=== PATIENT | female | born 1975 | race Two or more races ===

== ENCOUNTER 2024-04-19 05:32 | Day surgery (SDC) | payer OTHER ==
[2024-04-12 12:39] LABS: URINE APPEARANCE Clear; URINE BILIRRUBIN Negative (NEGATIVE); URINE BLOOD Small; URINE COLOR Yellow; URINE GLUCOSE Negative (NEGATIVE); URINE KETONE Negative (NEGATIVE); URINE LEUKOCYTE Negative; URINE NITRATE Negative; URINE PROTEIN Negative (NEGATIVE); URINE UROBILINOGEN 0.2 E.U./dl
[2024-04-12 12:43] LABS: URINE BACTERIA 64.2 uL (0.0-1933); URINE EPITHELIAL CELLS 2.6 uL (0.0-38.8); URINE RBC 31.9 uL (0.0-20.8); URINE WBC 2.6 uL (0.0-23.2)
[2024-04-12 12:56] LABS: HEMATOCRIT 36.3 % (36.0-45.00); HEMOGLOBIN 11.8 g/dL (12.0-15.00); MEAN CORPUSCULAR HEMOGLOBIN 21.7 pg (27.00-32.0); MEAN CORPUSCULAR HGB CONC 32.4 g/dl (32.0-36.0); PLATELET COUNT 310 K/uL (150-450); RED BLOOD COUNT 5.42 M/uL (4.00-6.00)
[2024-04-12 12:58] LABS: INR 1.03; PARTIAL THROMBOPLASTIN TIME 26.6 SECONDS (22.0-34.0); PROTHROMBIN TIME 10.8 SECONDS (9.0-11.5)
[2024-04-12 13:08] LABS: ALBUMIN 4.4 gm/dL (3.4-5.0); BILIRUBIN TOTAL 0.38 mg/dL (0.3-1.2); CALCIUM 10.5 mg/dL (8.5-10.1); CREATININE SERUM 0.62 mg/dL (0.55-1.02); GFR 101.89; GLOBULINA 3.5 G/DL (2.4-3.5); POTASSIUM 4.11 mEq/L (3.5-5.1); TOTAL PROTEIN 7.9 gm/dL (6.4-8.2)
[~2024-04-19] VITALS: Ht 157.5 cm; Wt 78.5 kg
[~2024-04-19 05:32] MED LIST: AMOX1TAB5 PO; LOSARTAN-HCTZ1 EAC1 PO; METFORMIN HCL750 MG PO; PROTONIX40 MG PO; TRICOR145 MG PO; [UNRECOGNIZED DRUG - OTHER] PO
[2024-04-19] MEDS ORDERED: CEFAZOLIN SODIUM 1,000 MG VIAL ONE (06:09)
[2024-04-19] MEDS ORDERED: SUGAMMADEX SODIUM 200 MG/2 ML VIAL IV ONE (09:21)
[2024-04-19 11:01] LABS: ABG PH 7.408 (7.35-7.45); ABG PO2 163.5 mmHg (80-100); ABG pCO2 40.8 mmHg (35-45); BASE EXCESS 0.5 mmol/l; BICARBONATE 25.2 mmol/l (23-25); SaO2 99.5 %; Tco2 26.4 mmol/l
[2024-04-19 12:20] LABS: allen test SATISFACTORY; o2 40 %; puncture site RADIAL RIGHT
== END 2024-04-19 14:35 | disposition home or self-care (01) ==
LOC: CIR.AMB 05:32
PROVIDERS: Anesthesiology; ATTEND Surgery
DX: K80.20 Calculus of gallbladder without cholecystitis without obstruction (principal); E11.9 Type 2 diabetes mellitus without complications

== ENCOUNTER 2024-05-25 07:45 | Inpatient (IN) | payer OTHER ==
[~2024-05-25] VITALS: Ht 160 cm; Wt 71.7 kg
[2024-05-25 09:23] VITALS: BP 159/85
[2024-05-25 09:26] VITALS: BP 115/78
[2024-05-25 09:28] LABS: PH,URINE 5.5 (5.0-8.0); URINE APPEARANCE Clear; URINE BILIRRUBIN Negative (NEGATIVE); URINE BLOOD Small; URINE COLOR Yellow; URINE GLUCOSE Negative (NEGATIVE); URINE KETONE Negative (NEGATIVE); URINE LEUKOCYTE Negative; URINE NITRATE Negative; URINE PROTEIN Negative (NEGATIVE); URINE UROBILINOGEN 0.2 E.U./dl
[2024-05-25 09:29] LABS: HEMATOCRIT 37.6 % (36.0-45.00); HEMOGLOBIN 12.4 g/dL (12.0-15.00); MEAN CELL VOLUME 74.1 fL (80.00-100.00); MEAN CORPUSCULAR HEMOGLOBIN 24.5 pg (27.00-32.0); PLATELET COUNT 272 K/uL (150-450); RED BLOOD COUNT 5.07 M/uL (4.00-6.00); RED CELL DISTRIBUTION WIDTH 23.2 % (11.5-14.5); URINE BACTERIA 425.8 uL (0.0-1933); URINE EPITHELIAL CELLS 44.3 uL (0.0-38.8); URINE RBC 111.7 uL (0.0-20.8); URINE WBC 4.7 uL (0.0-23.2)
[2024-05-25 09:30] LABS: URINE CAST 0.15 uL (0.0-1.40)
[2024-05-25 10:10] LABS: INR 1.05; PARTIAL THROMBOPLASTIN TIME 28.9 SECONDS (22.0-34.0); PROTHROMBIN TIME 11.4 SECONDS (9.0-11.5)
[2024-05-25 10:17] LABS: ALBUMIN 4.4 gm/dL (3.4-5.0); BILIRUBIN TOTAL 0.35 mg/dL (0.3-1.2); CALCIUM 9.9 mg/dL (8.5-10.1); CREATININE SERUM 0.67 mg/dL (0.55-1.02); GFR 93.16; GLOBULINA 3.4 G/DL (2.4-3.5); POTASSIUM 3.98 mEq/L (3.5-5.1); TOTAL PROTEIN 7.8 gm/dL (6.4-8.2); TSH 0.907 uIU/mL (0.358-3.74)
[2024-06-02] MEDS ORDERED: FREESTYLE LITE1 EAC1 (07:50)
[2024-06-02] MEDS ORDERED: FUSION PLUS CA1 EACH (07:50)
[2024-06-02] MEDS ORDERED: FLUOCINOLONE AC20 ML (07:50)
[2024-06-02] MEDS ORDERED: CHLORHEXIDINE GLUCONATE 120 ML BOTTLE TOP ONE (08:45)
[2024-06-02] MEDS ORDERED: CEFOXITIN SODIUM 2,000 MG VIAL IV SCH (08:45)
[2024-06-02] MEDS ORDERED: POVIDONE-IODINE 118 ML BOTT TOP ONE (08:45)
[2024-06-02] MEDS ORDERED: MEPERIDINE HCL/PF 50 MG/ML VIAL IV SCH (09:47)
[2024-06-02] MEDS ORDERED: PROMETHAZINE HCL 50 MG/ML AMPUL IV SCH (09:47)
[2024-06-02] MEDS ORDERED: RINGERS SOLUTION,LACTATED 1,000 ML IV SCH (10:00)
[2024-06-02] MEDS ORDERED: MORPHINE SULFATE 4 MG/ML VIAL IV ONE ×2 (11:05→12:05)
[2024-06-02 13:37] VITALS: BP 159/85
[2024-06-02 14:20] LABS: HEMATOCRIT 37.9 % (36.0-45.00); HEMOGLOBIN 12.4 g/dL (12.0-15.00); MEAN CELL VOLUME 74.7 fL (80.00-100.00); MEAN CORPUSCULAR HEMOGLOBIN 24.5 pg (27.00-32.0); MEAN CORPUSCULAR HGB CONC 32.8 g/dl (32.0-36.0); PLATELET COUNT 258 K/uL (150-450); RED BLOOD COUNT 5.08 M/uL (4.00-6.00); RED CELL DISTRIBUTION WIDTH 20.6 % (11.5-14.5)
[2024-06-02 16:00] VITALS: BP 127/79
[2024-06-02] MEDS ORDERED: SIMETHICONE 125 MG CAPSULE PO SCH (17:00)
[2024-06-02 20:00] VITALS: BP 127/80
[2024-06-03 01:21] VITALS: BP 138/80
[2024-06-03 06:16] VITALS: BP 126/78
[2024-06-03 08:00] VITALS: BP 140/80
[2024-06-03] MEDS ORDERED: ACETAMINOPHEN WITH CODEINE 1 UDTAB TABLET PO ONE (08:30)
[2024-06-03] MEDS ORDERED: NAPR500T14 PO (08:35)
[2024-06-03] MEDS ORDERED: Tylenol #3 PO (08:35)
== END 2024-06-03 12:33 | disposition home or self-care (01) | DRG 743 ==
LOC: O/R 06-02 05:30 → OB/GYN 06-02 07:00
PROVIDERS: ADMIT Obstetrics & Gynecology; ATTEND Obstetrics & Gynecology
PROC: 0UT7FZZ Resection of Bilateral Fallopian Tubes, Via Natural or Artificial Opening With Percutaneous Endoscopic Assistance (ICD-10-PCS; 2024-06-02)
PROC: 0UT2FZZ Resection of Bilateral Ovaries, Via Natural or Artificial Opening With Percutaneous Endoscopic Assistance (ICD-10-PCS; 2024-06-02)
PROC: 0USG4ZZ Reposition Vagina, Percutaneous Endoscopic Approach (ICD-10-PCS; 2024-06-02)
PROC: 0JQC0ZZ Repair Pelvic Region Subcutaneous Tissue and Fascia, Open Approach (ICD-10-PCS; 2024-06-02)
PROC: 0TJB8ZZ Inspection of Bladder, Via Natural or Artificial Opening Endoscopic (ICD-10-PCS; 2024-06-02)
PROC: 0UT9FZZ Resection of Uterus, Via Natural or Artificial Opening With Percutaneous Endoscopic Assistance (ICD-10-PCS; principal; 2024-06-02 07:00)
DX: D25.1 Intramural leiomyoma of uterus (principal); N81.11 Cystocele, midline; Z20.822 Contact with and (suspected) exposure to COVID-19; D50.0 Iron deficiency anemia secondary to blood loss (chronic); N92.0 Excessive and frequent menstruation with regular cycle